=== PATIENT | male | born 1975 | race Two or more races ===

== ENCOUNTER 2019-01-11 09:53 | Emergency (ER) | payer OTHER ==
[~2019-01-11] VITALS: Ht 175.3 cm; Wt 99.8 kg
[2019-01-11 09:58] VITALS: Ht 175.3 cm; Wt 99.8 kg
[2019-01-11 13:10] VITALS: BP 144/96
== END 2019-01-11 13:10 | disposition home or self-care (01) ==
LOC: ED 09:53
DX: N20.0 Calculus of kidney (principal); I10 Essential (primary) hypertension; E78.00 Pure hypercholesterolemia, unspecified
CPT/HCPCS: J1885; Q0092